=== PATIENT | female | born 1985 | race Caucasian/White ===

== ENCOUNTER 2017-02-19 16:06 | Emergency (ER) | payer BC, OTHER ==
[2017-02-19 18:41] VITALS: BP 149/106
--- NOTE | 2017-02-19 18:43 | UC ---
UC General HPI - HPI Summary HPI Summary: This is a 31 yo female with h/o migraines who presented with complaints of CLEANING, arthralgias, myalgias and fatigue for 2 weeks. No associated rash or known tick bites. She has been afebrile. No nausea or vomiting. No h/o similar symptoms. - History of Current Complaint Chief Complaint: UCHeadache Stated Complaint: HEADACHE,EXTREMITY PAIN - Allergy/Home Medications Allergies/Adverse Reactions: Allergies Allergy/AdvReac Type Severity Reaction Status Date / Time No Known Allergies Allergy Verified 02/19/17 17:13 PMH/Surg Hx/FS Hx/Imm Hx Previously Healthy: No - migraines, GERD - Surgical History Surgical History: Yes Surgery Procedure, Year, and Place: left shoulder x2 - Family History Known Family History: Positive: None - Social History Alcohol Use: Rare Substance Use Type: None Smoking Status (MU): Former Smoker Type: Cigarettes Amount Used/How Often: 1/2 ppd Review of Systems Constitutional: Fatigue Skin: Negative Eyes: Negative ENT: Negative Respiratory: Negative Cardiovascular: Negative Gastrointestinal: Negative Genitourinary: Negative Motor: Negative Neurovascular: Negative Musculoskeletal: Arthralgia, Myalgia Neurological: Headache Psychological: Negative All Other Systems Reviewed And Are Negative: Yes Physical Exam Triage Information Reviewed: Yes Appearance: Ill-Appearing - mildly Vital Signs: Initial Vital Signs Temp 97.7 F 02/19/17 17:08 Pulse 111 02/19/17 17:08 Resp 18 02/19/17 17:08 BP 187/95 02/19/17 17:08 Pulse Ox 100 02/19/17 17:08 Vital Signs Reviewed: Yes ENT: Positive: Normal ENT inspection Neck exam: Normal Neck: Positive: Supple, Nontender, No Lymphadenopathy Respiratory: Positive: Chest non-tender, Lungs clear, Normal breath sounds. Negative: Crackles, Rhonchi, Wheezing Cardiovascular: Positive: RRR, No Murmur Abdomen Description: Positive: Nontender Musculoskeletal Exam: Normal Neurological Exam: Normal Skin Exam: Normal Skin: Negative: rashes Course/Dx - Course Course Of Treatment: This is a 31 yo female with c/o CLEANING, arthralgias and fatigue for 2 weeks without focal exam findings. Question whether Lyme disease may be responsible for her symptoms. Recommend empiric treatment and serologic testing. She has follow up with her PCP for next week which she is encouraged to keep. Explained that serologies are often negative early in the disease, so if negative but she is clinically improving to continue the antibiotics - Differential Dx - Multi-Symptom Provider Diagnoses: 1. Suspected Lyme disease. 2. Elevated BP - recommend PCP follow up Discharge - Discharge Plan Condition: Stable Disposition: HOME Prescriptions: DOXYcycline CAP(*) [DOXYcycline 100MG CAP(*)] 100 mg PO BID #28 cap Patient Education Materials: Lyme Disease (ED) Referrals: Marge Sandra MD [Primary Care Provider] - (as scheduled) Additional Instructions: Activity: As tolerated Instructions: 1. Take antibiotics as directed 2. Please call to confirm results of Lyme 3. If serology is negative, but you are improving with antibiotics, please continue a full course of antibiotics 4. If negative and you are not improving, you can stop the antibiotic and follow up with your PCP regarding symptoms 5. Your blood pressure was elevated during your stay. Please follow up with your primary care provider regarding this.
[2017-02-23 21:35] LABS: Lyme Disease IgG Ab WB Negative (Negative)
== END 2017-02-19 18:43 | disposition home or self-care (01) ==
LOC: UCEAST 16:06
DX: R51 Headache (principal); M25.50 Pain in unspecified joint; M79.1 Myalgia; R53.83 Other fatigue; R03.0 Elevated blood-pressure reading, without diagnosis of hypertension; Z87.891 Personal history of nicotine dependence
CPT/HCPCS: 86617; 99212; G0463